=== PATIENT | female | born 1995 | race Caucasian/White ===

== ENCOUNTER → 2024-01-07 08:55 | Outpatient (BNVA) | payer MEDICAID, SELFPAY | PROVIDERS: Family Provider Nurse Practitioner; PCP Nurse Practitioner Family; Visit Provider Student in an Organized Health Care Education/Training Program | DX: S62.647A Nondisplaced fracture of proximal phalanx of left little finger, initial encounter for closed fracture; W23.0XXA Caught, crushed, jammed, or pinched between moving objects, initial encounter; D16.9 Benign neoplasm of bone and articular cartilage, unspecified | CPT/HCPCS: 73130 ==

== ENCOUNTER 2024-01-07 10:30 | Outpatient (CLI) | payer MEDICAID, SELFPAY | END 2024-01-07 10:31 | disposition home or self-care (01) | LOC: SPT 10:31 | PROVIDERS: Family Provider Nurse Practitioner; PCP Nurse Practitioner Family; Visit Provider Student in an Organized Health Care Education/Training Program | DX: Z46.89 Encounter for fitting and adjustment of other specified devices (principal); S62.617D Displaced fracture of proximal phalanx of left little finger, subsequent encounter for fracture with routine healing; X58.XXXD Exposure to other specified factors, subsequent encounter | CPT/HCPCS: L3984 ==

== ENCOUNTER → 2024-01-14 14:30 | Outpatient (BNVA) | payer MEDICAID, SELFPAY | PROVIDERS: Family Provider Nurse Practitioner; PCP Nurse Practitioner Family; Visit Provider Physician Assistant | DX: S62.617A Displaced fracture of proximal phalanx of left little finger, initial encounter for closed fracture (principal); X58.XXXA Exposure to other specified factors, initial encounter | CPT/HCPCS: 73130 ==

== ENCOUNTER → 2024-02-04 09:21 | Outpatient (BNVA) | payer MEDICAID, SELFPAY | PROVIDERS: Family Provider Nurse Practitioner; PCP Nurse Practitioner Family; Visit Provider Physician Assistant | DX: S62.647A Nondisplaced fracture of proximal phalanx of left little finger, initial encounter for closed fracture; X58.XXXA Exposure to other specified factors, initial encounter | CPT/HCPCS: 73130 ==

== ENCOUNTER → 2024-03-10 10:27 | Outpatient (BNVA) | payer MEDICAID, SELFPAY | PROVIDERS: Family Provider Nurse Practitioner; PCP Nurse Practitioner Family; Visit Provider Physician Assistant | DX: S62.617D Displaced fracture of proximal phalanx of left little finger, subsequent encounter for fracture with routine healing; X58.XXXD Exposure to other specified factors, subsequent encounter | CPT/HCPCS: 73130 ==

== ENCOUNTER 2024-08-26 01:23 | Emergency (ER) | payer MEDICAID, SELFPAY ==
[2024-08-26 01:27] VITALS: BP 200/107; PULSE 89; RESP 19; O2SAT 100; BMI 41.0
--- NOTE | 2024-08-26 01:32 | ECG_ITS ---
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 Measurements Intervals [place] Rate: 87 P: 2 CO: 152 QRS: 30 QRSD: 104 T: 7 QT: 359 QTc: 432 Interpretive Statements SINUS RHYTHM No previous ECG available for comparison Electronically Signed On 08-27-2024 18:03:24 AUTOMOTIVE SALES SPECIALIST by Obey Palmer M.D. [id number]
--- NOTE | 2024-08-26 01:32 | XRR_ITS ---
PROCEDURE INFORMATION: Exam: XR Chest Exam date and time: 08/26/2024 1:45 AM Age: 28 years old Clinical indication: Chest pressure; C/O chest pain TECHNIQUE: Imaging protocol: Radiologic exam of the chest. Views: 1 view. COMPARISON: No relevant prior studies available. FINDINGS: Lungs: Unremarkable. No consolidation. Pleural spaces: Unremarkable. No pleural effusion. No pneumothorax. Heart/Mediastinum: Unremarkable. No cardiomegaly. Bones/joints: Unremarkable. XR/XR chest 1V portable [id number] IMPRESSION: No acute findings.
--- NOTE | 2024-08-26 01:33 | ED_ITS ---
HPI - Chest Pain 2 General: Chief Complaint: Chest Pain Stated Complaint: upper right chest pain SOB lightheaded Time Seen by Provider: 08/26/24 01:25 History of Present Illness: Patient presents to the ER with complaints of chest pain that sharp and stabbing in nature. It has been going off and on and getting worse for the last 24 hours. It is worse when she takes a big deep breath. Patient is never had any pain like this before. Patient has no cardiac history other than high blood pressure. Patient has been on medicine for blood pressure in the past but she stopped it and is not currently on anything. Patient does have a little bit of nausea but no diaphoresis shortness of breath. Related Data Allergies Allergy/AdvReac Type Severity Reaction Status Date / Time cinnamon Allergy Severe ALGY-Difficulty Verified 03/10/24 10:33 Breathing Review of Systems 2 General: Reports: 10 or more systems reviewed and unremarkable except in HPI and below PFSH ED 2 PFSH: Social History Smoking and tobacco/nicotine status: current every day tobacco/nicotine user Substance/Drug Use: never Physical Exam 2 Const: COMMON NORMALS: no acute distress, average body habitus, patient oriented x3, no limitations, healthy appearing, alert and well nourished HENMT: COMMON NORMALS: normocephalic, atraumatic, hearing grossly normal bilaterally, external ears normal, Normal external nose present, moist oral mucous membranes and oropharynx normal HEAD & SCALP: normocephalic and atraumatic NOSE: Normal external nose present EXTERNAL EAR: Yes external ears normal Neck/C-Spine: COMMON NORMALS: no JVD Chest: COMMONS NORMALS: normal inspection of the chest; negative for normal palpation of entire chest wall (Tenderness to palpation over right-sided chest) Resp: COMMON NORMALS: normal respiratory effort, No retractions, No use of accessory muscles and clear to auscultation bilaterally AUSCULTATION: clear to auscultation bilaterally Cardio: COMMON NORMALS: no JVD, regular rate, regular rhythm, S1 normal heart sound present, S2 normal heart sound present, No gallops present (Cardio), No clicks present (Cardio), No murmurs present (Cardio) and No rub (Cardio) R ATE: regular rate RHYTHM: regular rhythm HEART SOUNDS: S1 normal heart sound present and S2 normal heart sound present GI: COMMON NORMALS: Normal to inspection, nondistended, normoactive bowel sounds present, Soft to palpation, non-tender, No hepatosplenomegaly present and no masses PALPATION: Yes Soft to palpation and Yes No hepatosplenomegaly present Neuro: COMMON NORMALS: patient oriented x3 SENSORIUM/ORIENTATION: Yes alert Course 2 Vital Signs: Vital signs: Vital Signs Pulse Rate 77 08/26/24 04:32 Respiratory Rate 23 H 08/26/24 01:42 Blood Pressure 141/86 08/26/24 04:32 Pulse Oximetry 94 08/26/24 04:32 Oxygen Delivery Me thod Room Air 08/26/24 01:42 MDM - Chest Pain Medical Decision Making Patient lab work to include CBC CMP serial troponins, serial EKGs, chest x-ray, all of which was essentially benign. Patient main chest pain-free during her entire stay. Patient was given 0.1 mg of clonidine for blood pressure. Patient be discharged home. Medical Records I reviewed the patient's medical records. Lab Data I reviewed the patient's lab results. 08/26/24 01:49 08/26/24 01:49 Radiology Impressions Chest X-Ray 08/26/24 01:32 IMPRESSION: No acute findings. Laboratory Results WBC 11.97 10^3/uL (3.29-11.43) H 08/26/24 01:49 RBC 4.79 10^6/uL (3.85-5.65) 08/26/24 01:49 Hgb 14.10 g/dL (11.27-16.99) 08/26/24 01:49 Hct 42.3 % (36-47) 08/26/24 01:49 MCV 88.3 fl (85-98) 08/26/24 01:49 MCH 29.4 pg (27-33) 08/26/24 01:49 MCHC 33.3 g/dL (30-55) 08/26/24 01:49 RDW 12.5 % (12.1-15.1) 08/26/24 01:49 Plt Count 303 10^3/cmm (157-399) 08/26/24 01:49 MPV 9.3 fL (7.4-10.4) 08/26/24 01:49 Neut % (Auto) 49.1 % 08/26/24 01:49 Lymph % (Auto) 41.9 % 08/26/24 01:49 Rains % (Auto) 6.2 % 08/26/24 01:49 Eos % (Auto) 2.2 % 08/26/24 01:49 Baso % (Auto) 0.3 % 08/26/24 01:49 Neut # (Auto) 5.88 10^3/uL (1.8-7.7) 08/26/24 01:49 Lymph # (Auto) 5.0 10^3/uL (0.8-4.8) H 08/26/24 01:49 Rains # (Auto) 0.7 10^3/uL (0.2-0.9) 08/26/24 01:49 Eos # (Auto) 0.3 10^3/uL (0.0-0.8) 08/26/24 01:49 Baso # (Auto) 0.0 10^3/uL (0.0-0.1) 08/26/24 01:49 Nucleated RBC % (auto) 0 % 08/26/24 01:49 Nucleated RBCs # 0.0 /100WBC 08/26/24 01:49 Sodium 139 mmol/L (136-145) 08/26/24 01:49 Potassium 3.6 mmol/L (3.5-5.1) 08/26/24 01:49 Chloride 104 mmol/L (98-107) 08/26/24 01:49 Carbon Dioxide 22 mmol/L (22-29) 08/26/24 01:49 Anion Gap 16.6 (5-19) 08/26/24 01:49 BUN 11 mg/dL (6-20) 08/26/24 01:49 Creatinine 0.7 mg/dL (0.5-0.9) 08/26/24 01:49 GFR Calculation 99.6 mL/min (90-130) 08/26/24 01:49 Glucose 128 mg/dL (65-115) H 08/26/24 01:49 Calculated Osmolality 289 mOsm/kg (285-295) 08/26/24 01:49 Calcium 9.8 mg/dL (8.5-10.5) 08/26/24 01:49 Total Bilirubin 0.3 mg/dL (0.15-1.2) 08/26/24 01:49 AST 92 U/L (0-32) H 08/26/24 01:49 ALT 111 U/L (0-33) H 08/26/24 01:49 Alkaline Phosphatase 95 U/L (35-105) 08/26/24 01:49 Troponin T Baseline < 6 ng/L (0-10) 08/26/24 01:49 Troponin T 120 Minute 6.00 ng/L (0-10) 08/26/24 03:47 Delta Troponin T 0.94001 ABS# (0-10) 08/26/24 03:47 Total Protein 7.2 g/dL (6.6-8.7) 08/26/24 01:49 Albumin 4.3 g/dL (3.5-5.2) 08/26/24 01:49 Globulin 2.9 g/dL (1.3-4.6) 08/26/24 01:49 All radiology interpretation(s) finalized by discharge Discharge Plan Discharge Patient Disposition: Home Clinical Impression: Chest pain Qualifiers: Chest pain type: unspecified Qualified Code(s): R07.9 - Chest pain, unspecified Hypertension Qualifiers: Hypertension type: unspecified Qualified Code(s): I10 - Essential (primary) hypertension Condition: Stable Discharge Orders: Discharge ED (Routine); Ordered 08/26/24 Ordered By: Tushar Beltran Referrals: Swati Pelayo NP [Primary Care Provider] - 1 week Patient Instructions: Chest Pain (ED), Hypertension (ED) Activity Restrictions/Additional Instructions: Your evaluation in the ER that included physical exam, blood work, chest x-ray, EKGs did not reveal any acute cardiac cause of your chest pain. Your chest pain is felt to be noncardiac in nature. However did reveal hypertension. Please keep a blood pressure log recheck your blood pressure least twice daily and take it with you when you follow-up with your family practice physician for further evaluation and treatment within the next 7 days. If your chest pain worsens please feel free to return to the ER. Print Language: Urdu Coding Level of Care Code ED Straight Knife Machine Cutter for Kaleigh Gongora
[2024-08-26 01:39] VITALS: BP 166/89
[2024-08-26] MEDS: cloNIDine 0.1 mg Tablet 0.2 MG PO (01:39)
[2024-08-26 01:42] VITALS: BP 166/89; PULSE 85; RESP 23; O2SAT 98
--- NOTE | 2024-08-26 01:42 | PC.NURSE ---
PER DR ORDER, PT WAS ONLY GIVEN 1 CLONIDINE.
[2024-08-26 01:56] LABS: Basophils % 0.3 %; Eosinophils # 0.3 10^3/uL (0.0-0.8); Eosinophils % 2.2 %; Hematocrit 42.3 % (36-47); Lymphocytes % 41.9 %; Mean Corpuscular HGB Conc 33.3 g/dL (30-55); Mean Corpuscular Hemoglobin 29.4 pg (27-33); Mean Corpuscular Volume 88.3 fl (85-98); Mean Platelet Volume 9.3 fL (7.4-10.4); Monocytes # 0.7 10^3/uL (0.2-0.9); Monocytes % 6.2 %; Neutrophils # 5.88 10^3/uL (1.8-7.7); Neutrophils % 49.1 %; Nucleated Red Blood Cells % 0 %; Platelet Count 303 10^3/cmm (157-399); Red Blood Count 4.79 10^6/uL (3.85-5.65); Red Cell Distribution Width 12.5 % (12.1-15.1); White Blood Count 11.97 10^3/uL (3.29-11.43)
[2024-08-26 02:18] LABS: Troponin(5th) Baseline < 6 ng/L (0-10)
[2024-08-26 02:20] LABS: Alanine Aminotransferase 111 U/L (0-33); Albumin Level 4.3 g/dL (3.5-5.2); Alkaline Phosphatase 95 U/L (35-105); Anion Gap 16.6 (5-19); Aspartate Amino Transferase 92 U/L (0-32); Blood Urea Nitrogen 11 mg/dL (6-20); Calcium 9.8 mg/dL (8.5-10.5); Carbon Dioxide 22 mmol/L (22-29); Chloride 104 mmol/L (98-107); Creatinine Clr Calc Pharmacy 123.5364; Globulin 2.9 g/dL (1.3-4.6); Glomerular Filtration Rate 99.6 mL/min (90-130); Glucose 128 mg/dL (65-115); Osmolality Calculated 289 mOsm/kg (285-295); Potassium 3.6 mmol/L (3.5-5.1); Sodium 139 mmol/L (136-145); Total Bilirubin 0.3 mg/dL (0.15-1.2); Total Protein 7.2 g/dL (6.6-8.7)
--- NOTE | 2024-08-26 03:32 | ECG_ITS ---
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 Measurements Intervals [place] Rate: 76 P: 3 ME: 162 QRS: 28 QRSD: 98 T: 10 QT: 379 QTc: 428 Interpretive Statements SINUS RHYTHM Compared to ECG 08/26/2024 01:28:48 No significant changes Electronically Signed On 08-27-2024 19:34:48 HOSPICE SPIRITUAL CARE COORDINATOR by Obey Palmer M.D. [id number] [id number]
[2024-08-26 04:13] LABS: Troponin 5 2HR Delta 0.00001 ABS# (0-10)
[2024-08-26 04:32] VITALS: BP 141/86; PULSE 77; O2SAT 94
== END 2024-08-26 04:41 | disposition home or self-care (01) ==
PROVIDERS: Emergency Provider Emergency Medicine; PCP Nurse Practitioner Family
DX: R07.9 Chest pain, unspecified (principal); I10 Essential (primary) hypertension; Z72.0 Tobacco use
CPT/HCPCS: 71045; 80053; 84484; 85025; 93005; 99285